=== PATIENT | female | born 1960 | race Caucasian/White ===

== ENCOUNTER 2018-02-12 17:42 | Emergency (ER) | payer BC ==
[~2018-02-12] VITALS: Ht 165.1 cm; Wt 74.7 kg
[~2018-02-12 17:42] MED LIST: ASPIR-TRIN325 M1 PO; Allegra PO; CALCIUM500 M4 PO; Fish Oil PO; LIDODERM 5% P1 PATCH TD; NAPROXEN500 MG PO; NEXIUM40 MG PO; NORVASC5 MG PO; PRAVACHOL20 MG PO; PRAVACHOL40 MG PO; PRILOSEC20 MG PO; PROTONIX40 MG PO; PriLOSEC PO; Tums PO; ZANAFLEX2 MG PO
[2018-02-12 18:20] LABS: HEMATOCRIT 43.5 % (36.0-46.0); HEMOGLOBIN 14.6 G/DL (11.9-15.5); MCH 29.3 PG (29.0-34.0); MCHC 33.6 G/DL (30.0-36.0); MCV 87.3 FL (83-99); PLATELET COUNT 279 K/uL (156-360); RBC DIS.WIDTH-SD 41.2 % (39-53); RED BLOOD COUNT 4.98 M/uL (3.80-5.20); WHITE BLOOD COUNT 9.1 K/uL (4.1-10.2)
[2018-02-12 18:29] LABS: CHLORIDE 103 mEq/L (99-109); POTASSIUM 4.6 mEq/L (3.7-5.4); SODIUM 140 mEq/L (136-147)
[2018-02-12 18:31] LABS: GLUCOSE 107 mg/dL (70-99)
[2018-02-12 18:34] LABS: CREATININE 0.9 mg/dL (0.6-1.3); GFR ESTIMATE (CALCULATED) > 59 mL/min/
[2018-02-12 18:35] LABS: UREA NITROGEN (BUN) 17 mg/dL (9-23)
[2018-02-12 18:42] LABS: TROP-I INTERPRETATION NEGATIVE; TROPONIN-I < 0.01 ng/mL (0.0-0.30)
[2018-02-12 21:19] LABS: APPEARANCE CLEAR ((CLEAR)); BILIRUBIN NEGATIVE; BLOOD NEGATIVE; COLOR YELLOW ((YELLOW)); GLUCOSE (STRIP) NEGATIVE; KETONES NEGATIVE; LEUKOCYTES NEGATIVE; NITRITE NEGATIVE; PROTEIN (STRIP) NEGATIVE; SPECIFIC GRAVITY 1.015 (1.000-1.030); UCUL ADDED? NO; UROBILINOGEN 0.2 MG/DL (0.2-1.0)
[2018-02-12 21:47] LABS: TROP-I INTERPRETATION NEGATIVE; TROPONIN-I < 0.01 ng/mL (0.0-0.30)
[2018-02-12 22:40] VITALS: BP 113/70
== END 2018-02-12 22:41 | disposition home or self-care (01) ==
LOC: EME 17:42
PROVIDERS: Physician Assistant
DX: R07.89 Other chest pain (principal); Z90.710 Acquired absence of both cervix and uterus; R91.8 Other nonspecific abnormal finding of lung field; K21.9 Gastro-esophageal reflux disease without esophagitis; E78.5 Hyperlipidemia, unspecified; Z79.82 Long term (current) use of aspirin; Z86.79 Personal history of other diseases of the circulatory system; Z88.8 Allergy status to other drugs, medicaments and biological substances
CPT/HCPCS: 71046; 71275; 80048; 81003; 84484; 85027; 85379; 93005; 99281; 99285; J7030